=== PATIENT | female | born 1970 | race Caucasian/White ===

== ENCOUNTER 2017-04-17 12:30 | Emergency (ER) | payer BC, OTHER ==
[~2017-04-17] VITALS: Ht 157.5 cm; Wt 97.0 kg
[~2017-04-17 12:30] MED LIST: IBUP-1542 PO; NORC 5-325 PO
[2017-04-17 13:12] VITALS: Ht 157.5 cm; Wt 97.0 kg
[2017-04-17] MEDS ORDERED: KETOROLAC 30 MG INJ IM STA (15:03)
[2017-04-17] MEDS ORDERED: DIAZEPAM 5 MG TAB PO ONE (15:30)
--- NOTE | 2017-04-17 15:35 | ERD ---
ER Documentation Chief Complaint Date/Time DATE: 04/17/17 TIME: 15:34 Chief Complaint pt bib family with c/o left buttock to leg pain x 2 days HPI 46-year-old female with history of back surgery presents to the emergency department complaining of severe left buttock pain that radiates down her leg for the past 3 days. Patient states the pain is 10 out of 10 and she has been seen at different emergency departments. Patient has been hospitalized at this hospital in 2013 for intractable back pain due to L4-L5 disc protrusion. She states that she has had back surgery 5 years prior to being seen and the pain is very similar prior to the surgery. She denies any fevers. She states that she took prednisone, Mobic without any relief. Denies fever, saddle anesthesia , bladder or bowel incontinence. Denies dysuria ROS All systems reviewed and are negative except as per history of present illness. Medications Home Meds Active Scripts Hydrocodone/Acetaminophen ([place] 5-325 Tablet) 1 Each Tablet, 1 TAB PO Q6H Y for PAIN, #7 TAB Prov:CAROLINA JOYA PA-C 04/17/17 Reported Medications Hydrocodone Bit-Acetaminophen* ([place]*) 5-325 Tablet, PO Q6 11/05/13 Ibuprofen* (Ibuprofen*) 600 Mg Tablet, 600 MG PO Q6 11/05/13 Allergies Allergies: Coded Allergies: No Known Allergy (Unverified , 04/17/17) PMhx/Soc History of Surgery: Yes (back surgery ) Anesthesia Reaction: No Hx Neurological Disorder: No Hx Respiratory Disorders: No Hx Cardiac Disorders: No Hx Psychiatric Problems: No Hx Miscellaneous Medical Probl: No Hx Alcohol Use: No Hx Substance Use: No Smoking Status: Never smoker Physical Exam Vitals Vital Signs Date Time Temp Pulse Resp B/P Pulse Ox O2 Delivery O2 Flow Rate FiO2 04/17/17 13:12 98.3 79 20 120/75 98 Physical Exam Const: Well-developed well-nourished no acute distress Head: Atraumatic Eyes: Normal Conjunctiva ENT: Normal External Ears, Nose and Mouth. Neck: Full range of motion..~ No meningismus. Resp: Clear to auscultation bilaterally Cardio: Regular rate and rhythm, no murmurs Abd: Soft, non tender, non distended. Normal bowel sounds Skin: No petechiae or rashes Back: No midline or flank tenderness Ext: Tenderness to palpation on the left buttock region. Positive straight leg raise Neur: Awake and alert Psych: Normal Mood and Affect Results 24 hrs Laboratory Tests Test 04/17/17 15:10 Urine Color YELLOW Urine Clarity CLEAR Urine pH 5.0 Urine Specific [place] 1.014 Urine Ketones NEGATIVEmg/dL Urine Nitrite NEGATIVEmg/dL Urine Bilirubin NEGATIVEmg/dL Urine Urobilinogen NEGATIVEmg/dL Urine Leukocyte Esterase NEGATIVELeu/ul Urine Hemoglobin NEGATIVEmg/dL Urine Glucose NEGATIVEmg/dL Urine Total Protein NEGATIVEmg/dl Current Medications Medications (Trade) Dose Ordered Sig/Ashley Route PRN Reason Start Time Stop Time Status Last Admin Dose Admin Ketorolac Tromethamine (Toradol) 30 mg ONCE STAT IM 04/17/17 15:03 04/17/17 15:05 DC 04/17/17 15:14 Diazepam (Valium) 10 mg ONCE ONCE PO 04/17/17 15:30 04/17/17 15:31 DC 04/17/17 15:14 Procedures/MDM This is a 46-year-old female presenting to the emergency department with signs and symptoms most consistent with sciatica. There is no evidence of any acute lumbar pathology. No evidence of cauda equina. Patient is neurovascular intact to be discharged home to follow-up with primary care physician and physical therapy. CT of the lumbar spine was done and radiologist stated 1. No acute abnormality of the lumbar spine. No evidence of fracture. 2. Moderate spondylosis at L3-4 and L4-5 with severe spinal stenosis at L3-4 and moderate spinal stenosis at L4-5. There is severe narrowing of both lateral recesses at these levels. 3. Multilevel facet spondylosis with severe narrowing of the left L5-S1 neural foramen. Other moderate foraminal narrowings as discussed above. Departure Diagnosis: Primary Impression: Sciatica Condition: Stable CAROLINA JOYA PA-C Apr 17, 2017 15:35
[2017-04-17 15:54] LABS: ADD UMIC NO; UR ASCORBIC ACID NEGATIVE (NEGATIVE); UR BILIRUBIN (Dip) NEGATIVE (NEGATIVE); UR BLOOD (Dip) NEGATIVE (NEGATIVE); UR CLARITY CLEAR (CLEAR); UR COLOR YELLOW (YELLOW); UR GLUCOSE (Dip) NEGATIVE (NEGATIVE); UR KETONES (Dip) NEGATIVE (NEGATIVE); UR LEUKOCYTE ESTERASE (Dip) NEGATIVE Leu/ul (NEGATIVE); UR NITRITE (Dip) NEGATIVE (NEGATIVE); UR SPECIFIC GRAVITY (Dip) 1.014 (1.003-1.030); UR TOTAL PROTEIN (Dip) NEGATIVE (NEGATIVE); UR UROBILINOGEN (Dip) NEGATIVE (NEGATIVE)
--- NOTE | 2017-04-17 16:34 | RADRPT ---
PROCEDURE: CT Lumbar Spine without contrast. CLINICAL INDICATION: Lumbar spine pain. TECHNIQUE: The study was performed on a multislice multidetector CT scanner. Spiral axial 1 mm im ages were obtained through the lumbar spine without intravenous contrast. 1 or more of the following dose reduction techniques were utilized: Automated exposure control, adjustment of the mA and/or k V according to patient's size, iterative reconstruction technique. Coronal and sagittal reformation s were obtained. The images were reviewed on a PACS workstation. RADIATION DOSE: CTDIvol: 38.5 mGyDLP: 1150.3 mGy-cm COMPARISON: No prior studies are available for comparison. FINDINGS: The alignment of the lumbar spine is normal. No vertebral body subluxation is seen. The interverte bral discs are normal in height. The vertebral body heights and marrow density are normal. The par aspinal soft tissues unremarkable. No significant paraspinal soft tissue swelling. L1-L2: The posterior margin of the disc is normal in appearance. No significant disc bulge or prot rusion is evident. The central canal and neural foramina are adequately patent. L2-L3: The posterior margin of the disc is normal in appearance. No significant disc bulge or prot rusion is evident. The central canal and neural foramina are adequately patent. L3-L4: There is a 4-5 mm annular disc bulge. The thecal sac measures 6 mm midline AP diameter. Ther e is severe narrowing of both lateral recesses. There is mild to moderate bilateral neural foraminal narrowing. There is mild bilateral facet spondylosis with buckling ligamentum flavum. L4-L5: There is a 3-4 mm annular disc bulge. The thecal sac measures 7.6 mm midline AP diameter. Th ere is severe narrowing of both lateral recesses. There is moderate bilateral facet spondylosis. The re is moderate bilateral neural foraminal narrowing. L5-S1: There is a 6-7 mm left paracentral disc protrusion without significant indentation on the ve ntral thecal sac. There is severe effacement of the left lateral recess. The central thecal sac me asures 9.2 mm in midline AP diameter. The right lateral recess is patent. There is severe left and moderate right neural foraminal narrowing. There is mild to moderate bilateral facet spondylosis. IMPRESSION: 1. No acute abnormality of the lumbar spine. No evidence of fracture. 2. Moderate spondylosis at L3-4 and L4-5 with severe spinal stenosis at L3-[address] enosis at L4-5. There is severe narrowing of both lateral recesses at these levels. 3. Multilevel facet spondylosis with severe narrowing of the left L5-S1 neural foramen. Other moder ate foraminal narrowings as discussed above. RPTAT: HGAS .Ulices Du MD, MD Date Time Electronically viewed and signed by .Ulices Du MD, on 04/17/2017 16:33 .S/
[2017-04-17] MEDS ORDERED: HYDR-906 PO (16:36)
== END 2017-04-17 17:02 | disposition home or self-care (01) ==
LOC: FTE 12:30
DX: M54.42 Lumbago with sciatica, left side (principal)
CPT/HCPCS: 72131; 81003; 96372; 99285; J1885

== ENCOUNTER 2019-02-19 08:28 | Day surgery (SDC) | payer OTHER ==
[2019-02-19] VITALS (15 sets, daily range): BP systolic 100–119; BP diastolic 61–71; PULSE 58–78; RESP 10–20; Ht 160 cm; Wt 95.9 kg
[~2019-02-19] VITALS: Ht 160 cm; Wt 95.9 kg
[~2019-02-19 08:28] MED LIST changes: +HYDR-4011 PO
[2019-02-19] MEDS ORDERED: LACTATED RINGER'S 1,000 ML IV SCH (09:30)
--- NOTE | 2019-02-19 09:40 | PREAC ---
Date/Time of Note Date/Time of Note DATE: 02/19/19 TIME: 09:39 Anesthesia Eval and Record Evaluation Time Pre-Procedure Interview DATE: 02/19/19 TIME: 09:39 Age 48 Sex female NPO: 8 hrs Preoperative diagnosis abnormal uterine bleeding Planned procedure D&C Past Medical History Past Medical History: Includes Musculoskeletal: Other (back pain ) GI: Obesity Surgery & Anesthesia Issues No known issue Meds Anticoagulation: No Beta Abbey within 24 hr: No Reason Beta Abbey not given: Pt. not on B-Abbey Discontinued Reported Medications Hydrocodone Bit-Acetaminophen* ([place]*) 5-325 Tablet, PO Q6 11/05/13 Ibuprofen* (Ibuprofen*) 600 Mg Tablet, 600 MG PO Q6 11/05/13 Discontinued Scripts Hydrocodone/Acetaminophen ([place] 5-325 Tablet) 1 Each Tablet, 1 TAB PO Q6H PRN for PAIN, #7 TAB Prov:CAROLINA JOYA PA-C 04/17/17 Current Medications Lactated Ringer's 1,000 ml @ 0 mls/hr Q0M IV Last administered on 02/19/19at 09:26; Admin Dose 0 MLS/HR; Start 02/19/19 at 09:30 Meds reviewed: Yes Allergies Coded Allergies: No Known Allergy (Unverified , 02/19/19) Allergies Reviewed: Yes Labs/Studies Labs Reviewed: Reviewed by anesthesiologist Result Diagram: 02/19/19 0900 02/19/19 0900 Laboratory Tests 02/19/19 09:00 test: N/A Pre-procedure Exam Last vitals Vital Signs Date Temp Pulse Resp B/P (MAP) Pulse Ox O2 O2 Flow FiO2 Time Delivery Rate 02/19/19 97.8 71 16 119/64 96 Room Air 09:09 (82) Airway: Adequate mouth opening, Adequate thyromental dist Mallampati: Mallampati III Teeth: Normal Lung: Normal Heart: Normal ASA Physical Status ASA physical status: 2 Emergency: None Pre-operative Attestations Prior to commencing anesthesia and surgery, the patient was re-evaluated, there was verification of: *The patient's identity *The results of appropriate recent lab work and preoperative vital signs *The above evaluation not changing prior to induction *Anesthetic plan, risk benefits, alternative and complications discussed with p atient/family; questions answered; patient/family understands, accepts and wishes to proceed. RANCHO FARRELL DO Feb 19, 2019 09:40
[2019-02-19] MEDS ORDERED: HYDROmorphONE 1 MG/5 ML IV SYRINGE IV PRN ×3 (10:00)
[2019-02-19] MEDS ORDERED: ONDANSETRON 4 MG INJ IV PRN (10:00)
[2019-02-19] MEDS ORDERED: SEVOFLURANE 15 MIN ONE (10:09)
[2019-02-19] MEDS ORDERED: LIDOCAINE 2% (SDV) 5 ML INJ ONE (10:09)
[2019-02-19] MEDS ORDERED: PROPOFOL 20 ML ONE (10:09)
[2019-02-19] MEDS ORDERED: MIDAZOLAM 1 MG/ML 2 ML INJ ONE (10:09)
[2019-02-19] MEDS ORDERED: FENTAnyl 50 MCG/ML VIAL ONE (10:09)
[2019-02-19] MEDS ORDERED: ONDANSETRON 4 MG INJ ONE (10:16)
--- NOTE | 2019-02-19 10:48 | SIPON ---
Date/Time of Note Date/Time of Note DATE: 02/19/19 TIME: 10:46 Operative Report Preoperative Diagnosis Abnormal uterine bleeding Postoperative Diagnosis Same Operation/Procedure Performed D&C Surgeon Ketan Stoner MD pharmacist assistant None Anesthesia: general Estimated blood loss: minimal Transfusion Required none Specimen ECC and EMC Grafts/Implants none Complications none KETAN STONER MD Feb 19, 2019 10:48
--- NOTE | 2019-02-19 11:37 | PREOPHP ---
DATE OF ADMISSION: 02/19/2019 HISTORY OF PRESENT ILLNESS: A 48-year-old female 2, para 3 with history of 1 set of twins, last menstrual period October 2018 is admitted with history of abnormal uterine bleeding. PAST MEDICAL HISTORY: Unremarkable. PAST SURGICAL HISTORY: History of back surgery for disc. ALLERGIES: NO KNOWN ALLERGIES. FAMILY HISTORY: Diabetes. PHYSICAL EXAMINATION: VITAL SIGNS: The patient is afebrile. Vital signs stable. HEAD, NECK AND CHEST: Within normal limits. ABDOMEN: Soft, nontender, nondistended. PELVIC: Normal. EXTREMITIES: Within normal limits. NEUROLOGIC: Within normal limits. IMPRESSION: Abnormal uterine bleeding. PLAN: Dilation and curettage. Risks, benefits and alternatives of procedure explained to the patient. The patient has an intrauterine device that she would like to continue to keep. The patient was counseled that during dilation and curettage, the intrauterine device may accidentally come out. After counseling the patient, she said she understood and gave informed consent for the procedure. Dictated By: KETAN BUSTOS/AYDE Conf#: [id number] DID#: [id number] MTDYaneli
--- NOTE | 2019-02-19 12:24 | PAC ---
Date/Time of Note Date/Time of Note DATE: 02/19/19 TIME: 12:24 Post-Anesthesia Notes Post-Anesthesia Note Last documented vital signs Vital Signs Date Temp Pulse Resp B/P (MAP) Pulse Ox O2 O2 Flow FiO2 Time Delivery Rate 02/19/19 97.8 71 16 119/64 96 Room Air 09:09 (82) Activity: WNL Respiratory function: WNL Cardiovascular function: WNL Mental status: Baseline Pain reasonably controlled: Yes Hydration appropriate: Yes Nausea/Vomiting absent: Yes RANCHO FARRELL DO Feb 19, 2019 12:24
--- NOTE | 2019-02-19 15:24 | OPR ---
DATE OF OPERATION: 02/19/2019 PREOPERATIVE DIAGNOSIS: Abnormal uterine bleeding. POSTOPERATIVE DIAGNOSIS: Abnormal uterine bleeding. OPERATION PERFORMED: Dilation and curettage. SURGEON: Ketan Seth MD ANESTHESIA: General. ANESTHESIOLOGIST: Osmel Fountain DO PROCEDURE: The patient was taken to the operating room, placed on the operating table in supine posi tion. After adequate general anesthesia was given, the patient was placed in dorsal lithotomy positi on. The area was prepared and draped in the usual sterile fashion. Speculum was placed inside the v agina and tenaculum was used to grasp the anterior lip of the cervix. Using a Kevorkian curet, endoc ervical curettage was performed and specimen obtained was sent to pathology. Next, using cervical di lators, the cervical os was dilated. Using a sharp curet, endometrial curettage was performed and sp ecimen obtained was sent to pathology. The IUD strings were visible and remained in situ. At the en d of the procedure all the instruments were removed. Adequate hemostasis was assured. Patient laura ated the procedure well. The patient was awakened from anesthesia and transferred to recovery in sta ble condition. ESTIMATED BLOOD LOSS: Minimal. COUNTS: All counts were correct. Dictated By: KETAN BUSTOS/NTS Conf#: [id number] DID#: [id number]
--- NOTE | 2019-02-19 16:23 | RADRPT ---
Vent Rate: 64 bpm RR Interval: 936 msec [place] Interval: 190 msec QRS Duration: 80 msec QT Interval: 413 msec QTC Interval: 427 msec P-R-T [place]: 1 - 55 - 42 degrees Sinus rhythm...normal P axis, V-rate 50- 99 Electronically Signed By: Joon Vega
== END 2019-02-19 12:40 | disposition home or self-care (01) ==
LOC: SDS 08:28
PROVIDERS: ATTEND Obstetrics & Gynecology
DX: N93.9 Abnormal uterine and vaginal bleeding, unspecified (principal); N71.1 Chronic inflammatory disease of uterus
CPT/HCPCS: 58120; 80053; 85025; 86850; 86900; 86901; 88305; 93005; J2250; J2405; J3010; Z7512; Z7610